=== PATIENT | male | born 1995 | race Caucasian/White ===

== ENCOUNTER 2018-09-28 21:37 | Emergency (ER) | payer OTHER ==
[~2018-09-28] VITALS: Ht 180.3 cm; Wt 63.6 kg
[2018-09-28] MEDS ORDERED: DEXAMETHASONE SOD PHOS 4 MG/ML VIAL PO ONE (22:00)
[2018-09-28] MEDS ORDERED: PENICILLIN V POTASSIUM 500 MG TABLET PO ONE (22:00)
[2018-09-28 22:41] VITALS: BP 119/74
== END 2018-09-28 22:45 | disposition home or self-care (01) ==
LOC: EMS 21:38
DX: J02.9 Acute pharyngitis, unspecified (principal); R03.0 Elevated blood-pressure reading, without diagnosis of hypertension
CPT/HCPCS: 99283; J1100